=== PATIENT | female | born 1945 | race Caucasian/White ===

== ENCOUNTER → 2016-07-25 | Outpatient (CLI) | payer OTHER ==
[~2016-07-25] MED LIST: ADVIN25/60 INH; ALBUAER2 INH; ASPCH81X PO; ATR25 PO; AZEL0.056; CYAN100020 PO; FAMO20TA9 PO; FURO20TA PO; LOSA50TA6 PO; MECL1TAB40 PO; MONT1TAB3 PO; MULT-506 PO; PANT40TA PO; SIMV20TA2 PO; VNTHFA/IN INH
[2016-07-25 13:32] LABS: HEMATOCRIT 43.8 % (37-47); MEAN CELL VOLUME 88.3 fL (80-100); MEAN CORPUSCULAR HEMOGLOBIN 28.8 pg (25-34); MEAN CORPUSCULAR HGB CONC 32.6 g/dl (32-36); MEAN PLATELET VOLUME 11.8 fL (7.4-10.4); PLATELET COUNT 189 K/uL (130-400); RED BLOOD COUNT 4.96 M/uL (4.2-5.4); WHITE BLOOD COUNT 5.93 K/uL (4.8-10.8)
[2016-07-25 15:03] LABS: ALT/SGPT 46 U/L (12-78); AST/SGOT 31 U/L (15-37); BLOOD UREA NITROGEN 15 mg/dl (7-18); BUN/CREATININE RATIO 16.2 (10-20); CALCIUM 8.9 mg/dl (8.5-10.1); CARBON DIOXIDE 28 mmol/L (21-32); CHLORIDE 107 mmol/L (98-107); GLUCOSE 91 mg/dl (70-99); HDL CHOLESTEROL 55 mg/dl; SODIUM 141 mmol/L (136-145)
[2016-07-25 15:05] LABS: ALB/GLOB RATIO 1.2 (0.9-2); ALKALINE PHOSPHATASE 72 U/L (45-117); CHOLESTEROL 146 mg/dl (0-200); CHOLESTEROL/HDL RATIO 2.7; LDL CHOLESTEROL CALCULATED 74 mg/dl; TRIGLYCERIDES 85 mg/dl (0-150); VERY LOW DENSITY LIPOPROT CALC 17 mg/dl
== END | disposition home or self-care (01) ==
LOC: C.LABPBG 07:27
PROVIDERS: ATTEND Family Medicine
DX: K21.9 Gastro-esophageal reflux disease without esophagitis (principal); E78.5 Hyperlipidemia, unspecified; I10 Essential (primary) hypertension; J45.909 Unspecified asthma, uncomplicated; Z11.59 Encounter for screening for other viral diseases

== ENCOUNTER → 2017-02-06 | Outpatient (CLI) | payer OTHER ==
[~2017-02-06] MED LIST changes: -ALBUAER2 INH; -CYAN100020 PO; -FURO20TA PO
[2017-02-06 17:44] LABS: URINE APPEARANCE CLEAR (CLEAR); URINE BILIRUBIN NEG (NEG); URINE COLOR YELLOW; URINE NITRITE NEG (NEG); URINE SPECIFIC GRAVITY 1.013 (1.000-1.030); UROBILINOGEN NEG (NEG)
[2017-02-06 17:52] LABS: MANUAL MICROSCOPIC REQUIRED? NO; REVIEW REQ? NO
== END | disposition home or self-care (01) ==
LOC: C.LABSPEC 15:24
PROVIDERS: ATTEND Family Medicine
DX: R30.0 Dysuria (principal)

== ENCOUNTER → 2017-06-14 | Outpatient (CLI) | payer OTHER ==
[2017-06-14 14:46] LABS: ALBUMIN 3.6 gm/dl (3.4-5.0); ALT/SGPT 37 U/L (12-78); AST/SGOT 25 U/L (15-37); BLOOD UREA NITROGEN 17 mg/dl (7-18); CALCIUM 9.1 mg/dl (8.5-10.1); CARBON DIOXIDE 29 mmol/L (21-32); CREATININE 0.91 mg/dl (0.60-1.20); GLUCOSE 96 mg/dl (70-99); SODIUM 140 mmol/L (136-145)
[2017-06-14 14:48] LABS: ALKALINE PHOSPHATASE 75 U/L (45-117); CHOLESTEROL 189 mg/dl (0-200); LDL CHOLESTEROL CALCULATED 107 mg/dl; TOTAL PROTEIN 7.3 gm/dl (6.4-8.2)
== END | disposition home or self-care (01) ==
LOC: C.LABPBG 07:59
PROVIDERS: ATTEND Family Medicine
DX: E78.5 Hyperlipidemia, unspecified (principal); I10 Essential (primary) hypertension

== ENCOUNTER → 2017-10-24 | Outpatient (CLI) | payer OTHER ==
--- NOTE | 2017-10-25 14:55 | MAMMOGRAPHY REPORT ---
BILATERAL DIGITAL SCREENING MAMMOGRAM TOMOSYNTHESIS WITH CAD: 10/24/2017 CLINICAL HISTORY: Routine screening. Patient has no complaints. TECHNIQUE: The study was acquired using full field digital technology and interpreted from soft copy. Breast tomosynthesis in addition to standard 2D mammography was performed. Current study was also ev aluated with a Computer Aided Detection (CAD) system. COMPARISON: Comparison is made to exam dated: 06/14/2015 mammogram - [facility]. BREAST COMPOSITION: There are scattered areas of fibroglandular density in both breasts. FINDINGS: No suspicious masses, calcifications, or areas of architectural distortion are noted in either breast . There has been no significant interval change compared to prior exams. IMPRESSION: ACR BI-RADS CATEGORY 1: NEGATIVE There is no mammographic evidence of malignancy. A 1 year screening mammogram is recommended.( 019) The patient will receive written notification of the results. Some breast cancers are not detected with mammography. A negative mammographic report should not mark y biopsy if a clinically suggestive mass is present. Ledy Carrasco M.D. ah/:10/24/2017 14:53:18 Core Layer Machine Operator: Amanda Ames, [facility] letter sent: Normal 1/2 BI-RADS Code: ACR BI-RADS Category 1: Negative
== END | disposition home or self-care (01) ==
LOC: C.MAMM 13:22
PROVIDERS: ATTEND Family Medicine
DX: Z12.31 Encounter for screening mammogram for malignant neoplasm of breast (principal)

== ENCOUNTER 2023-07-19 15:32 | Inpatient (IN) ==
--- NOTE | 2023-07-19 16:01 | ED Triage Note ---
Date of Service July 19, 2023 Provider in Triage Author: Marleny Thurman History of Present Illness This patient was briefly evaluated while in triage. An abbreviated physical exam was performed. This patient is a 77-year-old Female who presents to the ED for evaluation of LLQ abdominal pain since Sunday. No fevers, nausea, or vomiting. Had outpatient CT scan that showed diverticulitis with possible diverticular abscess. Was sent to the ER for admission. Physical Exam GENERAL: Non-toxic and in no acute distress. HEENT: Pupils equal. No obvious scleral icterus. NEURO: Alert and oriented. No obvious neurological deficits on quick neuro exam. Initial orders for labs and / or imaging were placed and patient was placed in the waiting area until a bed is available. Please see further documentation for the full ED course. MDM / Impression Impression Impression: Diverticular disease of intestine with perforation and abscess
[2023-07-19] MEDS: PIPERACILLIN/TAZOBACTAM 4.5 GM/100 ML BAG IV ONE (16:17)
[2023-07-19] MEDS: SODIUM CHLORIDE 0.9% 500 ML IV ONE (16:18)
[2023-07-19 16:41] LABS: Basophils # (auto) 0.04 K/uL (0.00-0.20); Basophils % (auto) 0.4 %; Eosinophils # (auto) 0.23 K/uL (0.00-0.50); Eosinophils % (auto) 2.5 %; Hematocrit (blood only) 46.3 % (37.0-47.0); Hemoglobin 14.8 g/dl (12.0-16.0); Immature Granulocytes # (auto) 0.04 K/uL (0.01-0.20); Immature Granulocytes % (auto) 0.4 %; Lymphocytes # (auto) 2.25 K/uL (1.20-3.40); Lymphocytes % (auto) 24.4 %; Mean Corpuscular Hemoglobin 27.9 pg (25.0-34.0); Mean Corpuscular Volume 87.4 fL (80.0-100.0); Monocytes % (auto) 7.6 %; Neutrophils # (auto) 5.96 K/uL (1.40-6.50); Neutrophils % (auto) 64.7 %; Platelet Count 252 K/uL (130-400); RDW Coefficient of Variation 13.6 % (11.5-14.5); RDW Standard Deviation 43.5 fL (36.4-46.3); White Blood Count 9.22 K/ul (4.8-10.8)
--- NOTE | 2023-07-19 16:45 | XRay Report ---
XR chest 1V not portable CLINICAL HISTORY: Diverticulitis with ? Abscess/perf COMPARISON STUDY: Chest radiograph February 23, 2022. Chest CT November 18, 2021. FINDINGS: There is no pneumothorax or pleural effusion. Linear left basilar densities represent atele ctasis. No consolidation is identified. Pulmonary vascularity is normal. Cardiomediastinal silhouette is unremarkable. IMPRESSION: No acute cardiopulmonary findings. ACT 112: Negative or not required by law. Electronically signed by: Hossein Lancaster M.D. 07/19/2023 4:43 PM
[2023-07-19 16:56] LABS: Albumin Globulin Ratio 1.2 (0.9-2); Albumin Level 4.3 gm/dl (3.4-5.0); BUN Creatinine Ratio 17.5 (10-20); Bilirubin,Total 0.4 mg/dl (0.2-1.0); Calcium 9.9 mg/dl (8.6-10.3); Creatinine Clr Calc Pharmacy 56.2 ml/min; Est GFR (African American) 82.4 ml/min; Est GFR (Non-African American) 71.1 ml/min; Globulin 3.5 gm/dl (2.5-4.0); Potassium 3.8 mmol/L (3.5-5.1); Total Protein 7.8 gm/dl (6.0-8.3)
[2023-07-19] MEDS ORDERED: MoRPHine SULFATE 2 MG/ML CARP IV PRN (18:21)
[2023-07-19] MEDS ORDERED: ONDANSETRON INJ 2 MG/ML 2 ML VIAL IV PRN (18:23)
[2023-07-19] MEDS ORDERED: MAGNESIUM HYDROXIDE SUSP 30 ML UDC PO PRN (18:23)
[2023-07-19 18:54] LABS: Appearance Urine Clear (Clear); Bilirubin Urine Negative (Negative); Blood Urine Trace-intact (Negative); Color Urine Yellow; Glucose Urine UA Negative (Negative); Ketones Urine Negative (Negative); Leukocyte Esterase Urine Negative (Negative); Nitrite Urine Negative (Negative); Protein Urine Negative (Negative); Specific Gravity Urine 1.015 (1.000-1.030); Urobilinogen Urine Negative (Negative)
[2023-07-19 19:08] LABS: Epithelial Cell Urine 0-2 /hpf (0-2)
[2023-07-19 19:09] LABS: Bacteria Urine None Seen (None Seen); WBC Urine 0-5 /hpf (0-5)
--- NOTE | 2023-07-19 19:38 | Surgery Consultation ---
Date of Consultation July 19, 2023 Assessment & Plan (1) Diverticulitis: The patient is being admitted on the hospital service. From surgery perspective we recommend the following: Provide analgesics Provide antiemetics Would recommending keeping patient n.p.o. for the present time Provide IV fluid for hydration Broad-spectrum antibiotics to be utilized and the patient has received Zosyn thus far in the emergency department and this should continue Serial labs should be followed Serial abdominal exams to be followed At the present time the patient is noted be normotensive without tachycardia or fever. She also does not have leukocytosis or acute kidney injury. I feel the above conservative management is a reasonable approach at this time. I did discuss with the patient that would be preferable not to operate on her at this time as any surgical procedure at this time would necessitate a colostomy which she wishes to avoid If the patient fails to respond to the above measures consideration be given to repeat imaging to see if her noted abscess has increased in size. At the present time I feel that this abscess is too small for percutaneous drainage There is also concern in the past the patient may have had a colovesical fistula. Her current urinalysis does not support this diagnosis. If there does remain a concern for colovesical fistula consideration be given to performing a CT cystogram to better delineate the potential for this problem Additional recommendations be forthcoming based on her clinical course as unfolds History of Present Illness History of Present Illness This a 77-year-old female who presented to the emergency department at the recommendation of her primary care team secondary to diverticulitis. The patient notes that earlier this week she was having some lower abdominal pressure and patient felt as though she may have had a urinary tract infection. She said that she did see her primary care team where urinalysis was checked and she was told she did not have a urinary tract infection. Patient notes that she continues to have lower abdominal pressure so she was seen by her primary care team. The patient notes that she did have an episode of diverticulitis earlier this year in March that did not require any surgical intervention, but secondary to this past issue a CT scan of the abdomen pelvis was performed as an outpatient. It is also noteworthy to mention that there was concern during patient's episode of diverticulitis in March of this year that she may have had a colovesical fistula, however this was never definitively ascertained.. The CT scan of the patient's abdomen pelvis was performed earlier today and this demonstrated findings consistent with sigmoid diverticulitis. The patient had a 1.8 x 1.4 cm developing diverticular abscess. There is also some adjacent fluid and small amount of extraluminal gas between the sigmoid colon and the bladder suggestive of a contained diverticular perforation. There was bladder wall thickening with mucosal hyperemia but no gas or symptoms in the bladder. The patient presented to the emergency department where labs were performed as well as a chest x-ray. The chest x-ray showed no evidence of pneumonia. Labs included CBC her white blood cell count, hemoglobin, hematocrit, and platelet count were all normal. Chemistry profile showed sodium and potassium along with the BUN and creatinine were normal. There is no elevation of her procalcitonin or LFTs. Urinalysis was negative for infection. I did asked the patient about her symptomatology related to her current episode of diverticulitis and she merely reports some lower abdominal pressure greatest on the left lower quadrant. She denies any fevers, shakes, or chills. She denies any nausea or vomiting. Patient did note that she was having urinary frequency without dysuria or hematuria. She notes that she has never had abdominal surgery in the past she also notes that she does not take any anticoagulants. At the time of my interview the patient was resting comfortably in bed and she was in no distress Allergies Allergy/AdvReac Type Severity Reaction Status Date / Time adhesive Allergy Mild RASH Verified 07/19/23 11:10 No Known Drug Allergies Allergy Unknown . Verified 07/19/23 11:10 Home Medications Medication Instructions Recorded Confirmed Type cyanocobalamin (vitamin B-12) 1,000 mcg PO QAM 10/30/18 07/19/23 History 1,000 mcg tablet (Vitamin B-12) multivitamin 1 cap PO QAM 10/30/18 07/19/23 History flaxseed oil 1,000 mg capsule 1,000 mg PO QPM 01/16/20 07/19/23 History aspirin 81 mg tablet 81 mg PO QAM 03/17/22 07/19/23 History fexofenadine 180 mg tablet 180 mg PO HS 10/30/22 07/19/23 History (Giovanna Allergy) losartan 50 mg tablet 75 mg (1.5 x 50 mg) PO QAM #135 12/01/22 07/19/23 Rx tabs meclizine 12.5 mg tablet 12.5 mg PO BID PRN Vertigo #20 tabs 12/21/22 07/19/23 Rx furosemide 20 mg tablet 20 mg PO DAILY PRN leg swelling 01/23/23 07/19/23 Rx #30 tabs albuterol sulfate 90 mcg/actuation 2 puff inhalation Q6H PRN ASTHMA 02/05/23 07/19/23 Rx aerosol inhaler (Ventolin HFA) #18 grams famotidine 20 mg tablet See Rx Instructions .Route 02/05/23 07/19/23 Rx .COMPLEX #90 tabs fluticasone propionate 50 2 spray intranasal DAILY PRN Nasal 02/05/23 07/19/23 Rx mcg/actuation nasal Congestion #16 grams spray,suspension pantoprazole 40 mg tablet,delayed 40 mg PO DAILY GERD #90 tabs 02/09/23 07/19/23 Rx release hydroxyzine HCl 25 mg tablet 12.5 mg (1/2 x 25 mg) PO Q OTHER 02/27/23 07/19/23 Rx DAY itching #45 tabs montelukast 10 mg tablet 10 mg PO HS #90 tabs 03/05/23 07/19/23 Rx pregabalin 75 mg capsule 75 mg PO HS #90 caps 04/26/23 07/19/23 Rx fluticasone 250 mcg-salmeterol 50 1 inh inhalation BID PRN ASTHMA 05/03/23 07/19/23 Rx mcg/dose blistr powdr for #180 ea inhalation (Advair Diskus) simvastatin 40 mg tablet 40 mg PO HS #90 tabs 05/03/23 07/19/23 Rx triamcinolone acetonide 0.1 % 1 applic topical BID 2 weeks #30 07/19/23 07/19/23 Rx topical ointment grams Patient History Medical History Hx of diverticulitis of colon treated with oral abx in August 2022. History of COVID-19 09/2021- [facility],sinus congestion, no hospitalization, no current issues Prediabetes Hgb A1C 08/15/21 was 5.9 Peripheral neuropathy Allergic rhinitis Bulging lumbar disc hx of epidural steroid injection. follows with [facility]. Diverticulosis of colon Hyperlipidemia Acid reflux Vertigo Asthma Inhaler prn Hypertension Surgical History S/P epidural steroid injection S/P cystoscopy with uretral dilation and biopsy (benign) History of anesthesia reaction PROBLEMS WITH VERTIGO AFTER ANESTHESIA History of esophagogastroduodenoscopy (EGD) History of colonoscopy History of tooth extraction S/P trigger finger release History of sinus surgery History of appendectomy History of cholecystectomy History of hysterectomy vaginal Family History Father Stroke Asthma Hypotension Mother Diabetes Breast cancer Hypertension Stroke Brother Diabetes Hypertension Stroke Brother Pancreatic cancer Sister Diabetes Hypertension Family history of thyroid problem Other No family history of adverse response to anesthesia Denies family history of Ovarian cancer Colorectal cancer Social History Smoking Status: Never smoker Second Hand Exposure: No; Do You Dip or Chew Tobacco: No; Hx Alcohol Use: No Hx Substance Use: No Preferred Language: Polish Communication Ability: Effective Visual Impairment: No Limitations Hearing Ability: Normal Home Health Lpn Required: No Beliefs That Will Affect Care: None marital status: Current Living Situation: Spouse current occupational status: retired How many Children do You have: 3 Feels Safe at Home: Yes Childhood Exposure to Second-Hand Smoke: No Diet: regular Diet Comment: regular caffeine: Yes (coffee) during the past year weight has: remained stable Dental Care, Regularly: Yes Physical Activity Frequency: Daily Physical Activity Frequency Comment: housechores, pizza shop and beauty shop Seatbelt Use: always Sunscreen Use: Yes Assistive Devices: Glasses Review of Systems Constitutional: no fever and no chills Ear, Nose, Mouth, Throat: no hearing loss Respiratory: no cough and no dyspnea Cardiovascular: no chest pain Gastrointestinal: as per Subjective / HPI Genitourinary: as per Subjective / HPI Musculoskeletal: no back pain Integumentary: no rash Neurologic: no localized weakness Physical Exam Constitutional: WD/WN, vitals as above Eyes: no conjunctival abnormality ENMT: Ears: no hearing impairment and no external ear abnormality Mouth: no oropharynx abnormality Neck: trachea midline Respiratory: normal respiratory effort; no respiratory distress and no labored breathing Cardiovascular: Rate/Rhythm: regular rate and regular rhythm Gastrointestinal (Abdomen): Abdomen is soft and nonrigid. Patient did have only slight tenderness to palpation in the left lower quadrant. There is no rebound tenderness or guarding or signs of peritonitis Musculoskeletal: No calf tender Skin: no rashes Neurologic: moves all extremities Psychiatric: A+Ox3, euthymic affect Results & Data Vital Signs (Past 12 Hours) Vital Signs Temp Pulse Resp BP Pulse Ox O2 Del Method 07/19/23 15:54 36.9 C 84 18 152/71 H 94 Room Air PG Care Time/CCT Total # of Minutes Spent Total Time Spent with Patient: Total time spent is greater than 50% in coordination of care (as documented) at patient's floor/unit and/or counseling patient: Coding Level of Care Code 98392 INT INP/OBS CARE MIN Diagnoses Diverticulitis K57.92
--- NOTE | 2023-07-19 19:44 | History & Physical Report ---
Date of Service July 19, 2023 Assessment & Plan (1) Diverticulitis: (2) Hypertension: (3) Asthma: (4) Vertigo: (5) Hyperlipidemia: (6) Peripheral neuropathy: (7) Prediabetes: Plan 77-year-old female with history of diverticular disease presents with recurrent diverticulitis with possible abscess IV antibiotic IV fluids Clear liquid diet Surgical evaluation monitor CBC, pain control # UTI follow up urine culture IV antibiotics # HTN continue home meds # GERD continue home meds # Asthma stable , no exacerbation , continue home meds # hyperlipidemia continue home meds # peripheral neuropathy continue home meds # prediabets , monitor BG History of Present Illness Chief Complaint: left lower abdomen pain Primary Care Provider: Mari Nelson DO 77-year-old female with past medical history significant for recurrent diverticulitis, GERD, hypertension, asthma presents here with left lower abdominal pain, started Sunday, no fever or chills, no nausea no vomiting, has a loose stool, urinary frequency, outpatient CT abdomen and pelvis is significant for sigmoid colon diverticulitis with possible diverticular abscess, she was sent to the emergency room for evaluation and treatment . She had a colonoscopy last year, showed multiple diverticula, its her third episode of diverticulitis. Denies any weight loss, and overall has a good appetite, denies chest pain shortness of breath or any other symptoms. Patient mentions history of colovesical fistula, apparently she was evaluated by surgeon and was told she has no fistula. Allergies Allergy/AdvReac Type Severity Reaction Status Date / Time adhesive Allergy Mild RASH Verified 07/19/23 11:10 No Known Drug Allergies Allergy Unknown . Verified 07/19/23 11:10 Home Medications Medication Instructions Recorded Confirmed Type cyanocobalamin (vitamin B-12) 1,000 mcg PO QAM 10/30/18 07/19/23 History 1,000 mcg tablet (Vitamin B-12) multivitamin 1 cap PO QAM 10/30/18 07/19/23 History flaxseed oil 1,000 mg capsule 1,000 mg PO QPM 01/16/20 07/19/23 History aspirin 81 mg tablet 81 mg PO QAM 03/17/22 07/19/23 History fexofenadine 180 mg tablet 180 mg PO HS 10/30/22 07/19/23 History (Giovanna Allergy) losartan 50 mg tablet 75 mg (1.5 x 50 mg) PO QAM #135 12/01/22 07/19/23 Rx tabs meclizine 12.5 mg tablet 12.5 mg PO BID PRN Vertigo #20 tabs 12/21/22 07/19/23 Rx furosemide 20 mg tablet 20 mg PO DAILY PRN leg swelling 01/23/23 07/19/23 Rx #30 tabs albuterol sulfate 90 mcg/actuation 2 puff inhalation Q6H PRN ASTHMA 02/05/23 07/19/23 Rx aerosol inhaler (Ventolin HFA) #18 grams famotidine 20 mg tablet See Rx Instructions .Route 02/05/23 07/19/23 Rx .COMPLEX #90 tabs fluticasone propionate 50 2 spray intranasal DAILY PRN Nasal 02/05/23 07/19/23 Rx mcg/actuation nasal Congestion #16 grams spray,suspension pantoprazole 40 mg tablet,delayed 40 mg PO DAILY GERD #90 tabs 02/09/23 07/19/23 Rx release hydroxyzine HCl 25 mg tablet 12.5 mg (1/2 x 25 mg) PO Q OTHER 02/27/23 07/19/23 Rx DAY itching #45 tabs montelukast 10 mg tablet 10 mg PO HS #90 tabs 03/05/23 07/19/23 Rx pregabalin 75 mg capsule 75 mg PO HS #90 caps 04/26/23 07/19/23 Rx fluticasone 250 mcg-salmeterol 50 1 inh inhalation BID PRN ASTHMA 05/03/23 07/19/23 Rx mcg/dose blistr powdr for #180 ea inhalation (Advair Diskus) simvastatin 40 mg tablet 40 mg PO HS #90 tabs 05/03/23 07/19/23 Rx triamcinolone acetonide 0.1 % 1 applic topical BID 2 weeks #30 07/19/23 07/19/23 Rx topical ointment grams Past Med/Surg History Medical History Hx of diverticulitis of colon History of COVID-19 Prediabetes Peripheral neuropathy Allergic rhinitis Bulging lumbar disc Diverticulosis of colon Hyperlipidemia Acid reflux Vertigo Asthma Hypertension Surgical History S/P epidural steroid injection S/P cystoscopy History of anesthesia reaction History of esophagogastroduodenoscopy (EGD) History of colonoscopy History of tooth extraction S/P trigger finger release History of sinus surgery History of appendectomy History of cholecystectomy History of hysterectomy Family History Father Stroke Asthma Hypotension Mother Diabetes Breast cancer Hypertension Stroke Brother Diabetes Hypertension Stroke Brother Pancreatic cancer Sister Diabetes Hypertension Family history of thyroid problem Other No family history of adverse response to anesthesia Denies family history of Ovarian cancer Colorectal cancer Social History Smoking Status: Never smoker Second Hand Exposure: No; Do You Dip or Chew Tobacco: No; Hx Alcohol Use: Yes Alcohol type: wine Alcohol Intake Frequency: Monthly or Less Hx Substance Use: No Preferred Language: Irish Communication Ability: Effective Visual Impairment: No Limitations Hearing Ability: Normal Produce 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 Beliefs That Will Affect Care: None marital status: Current Living Situation: Spouse current occupational status: retired How many Children do You have: 3 Feels Safe at Home: Yes Childhood Exposure to Second-Hand Smoke: No Diet: regular Diet Comment: regular caffeine: Yes (coffee) during the past year weight has: remained stable Dental Care, Regularly: Yes Physical Activity Frequency: Daily Physical Activity Frequency Comment: housechores, pizza shop and beauty shop Seatbelt Use: always Sunscreen Use: Yes Assistive Devices: Glasses Review of Systems Review of Systems: All systems reviewed & are unremarkable except as noted in HPI & below Physical Exam Physical Exam: Head is atraumatic normocephalic neck supple no JVD no carotid bruit lungs clear to auscultation bilaterally heart S1-S2 regular no murmurs gallops or rubs abdomen left lower quadrant tenderness, soft , nondistended, bowel sounds present extremities no clubbing no cyanosis, pulses present neuro alert awake oriented x 3, no focal deficit Results & Data Results & Data Vital Signs (Past 12 Hours) Vital Signs Temp Pulse Resp BP Pulse Ox O2 Del Method 07/19/23 15:54 36.9 C 84 18 152/71 H 94 Room Air Laboratory Results Abnormal lab results 07/19/23 07/19/23 Range/Units 16:20 18:30 [place] # (Auto) 0.70 H (0.11-0.59) K/uL Glucose 161 H (70-99(Fasting)) mg/dl Urine Blood Trace-intact H (Negative) Urine RBC 3-5 H (0-2) /hpf Diagnostic Findings Chest X-Ray 07/19/23 16:01 XR chest 1V not portable CLINICAL HISTORY: Diverticulitis with ? Abscess/perf COMPARISON STUDY: Chest radiograph February 23, 2022. Chest CT November 18, 2021. FINDINGS: There is no pneumothorax or pleural effusion. Linear left basilar densities represent atelectasis. No consolidation is identified. Pulmonary vascularity is normal. Cardiomediastinal silhouette is unremarkable. IMPRESSION: No acute cardiopulmonary findings. ACT 112: Negative or not required by law. Electronically signed by: Hossein Lancaster M.D. 07/19/2023 4:43 PM Code Status & VTE Plan Code Status full VTE Prophylaxis Plan VTE Prophylaxis will be ordered: Yes PG Care Time/CCT Total # of Minutes Spent Total Time Spent with Patient: Total time spent is greater than 50% in coordination of care (as documented) at patient's floor/unit and/or counseling patient: Coding Level of Care Code 34506 INT INP/OBS CARE MIN Diagnoses Diverticulitis K57.92 Hypertension I10 Asthma J45.909 Vertigo R42 Hyperlipidemia E78.5 Peripheral neuropathy G62.9 Prediabetes R73.03
[2023-07-19] MEDS: LACTATED RINGER'S 1,000 ML IV SCH (20:33)
--- NOTE | 2023-07-19 21:02 | Emergency Department Note ---
History of Present Illness General Chief Complaint: Abnormal Labs/Diagnostic Testing Stated Complaint: DOC REF,CT SCAN ABNORMAL, Time Seen by Provider: 07/19/23 16:37 History of Present Illness Provider Complaint: + abnormal lab Description of abnormal result: Abnormal CT Associated symptoms: + abdominal pain; no fever, no chills, no chest pain, no shortness of breath or no rash Home Medications Medication Instructions Recorded Confirmed Type cyanocobalamin (vitamin B-12) 1,000 mcg PO QAM 10/30/18 07/19/23 History 1,000 mcg tablet (Vitamin B-12) multivitamin 1 cap PO QAM 10/30/18 07/19/23 History flaxseed oil 1,000 mg capsule 1,000 mg PO QPM 01/16/20 07/19/23 History aspirin 81 mg tablet 81 mg PO QAM 03/17/22 07/19/23 History fexofenadine 180 mg tablet 180 mg PO HS 10/30/22 07/19/23 History ([facility] Allergy) losartan 50 mg tablet 75 mg (1.5 x 50 mg) PO QAM #135 12/01/22 07/19/23 Rx tabs meclizine 12.5 mg tablet 12.5 mg PO BID PRN Vertigo #20 tabs 12/21/22 07/19/23 Rx furosemide 20 mg tablet 20 mg PO DAILY PRN leg swelling 01/23/23 07/19/23 Rx #30 tabs albuterol sulfate 90 mcg/actuation 2 puff inhalation Q6H PRN ASTHMA 02/05/23 07/19/23 Rx aerosol inhaler (Ventolin HFA) #18 grams famotidine 20 mg tablet See Rx Instructions .Route 02/05/23 07/19/23 Rx .COMPLEX #90 tabs fluticasone propionate 50 2 spray intranasal DAILY PRN Nasal 02/05/23 07/19/23 Rx mcg/actuation nasal Congestion #16 grams spray,suspension pantoprazole 40 mg tablet,delayed 40 mg PO DAILY GERD #90 tabs 02/09/23 07/19/23 Rx release hydroxyzine HCl 25 mg tablet 12.5 mg (1/2 x 25 mg) PO Q OTHER 02/27/23 07/19/23 Rx DAY itching #45 tabs montelukast 10 mg tablet 10 mg PO HS #90 tabs 03/05/23 07/19/23 Rx pregabalin 75 mg capsule 75 mg PO HS #90 caps 04/26/23 07/19/23 Rx fluticasone 250 mcg-salmeterol 50 1 inh inhalation BID PRN ASTHMA 05/03/23 07/19/23 Rx mcg/dose blistr powdr for #180 ea inhalation (Advair Diskus) simvastatin 40 mg tablet 40 mg PO HS #90 tabs 05/03/23 07/19/23 Rx triamcinolone acetonide 0.1 % 1 applic topical BID 2 weeks #30 07/19/23 07/19/23 Rx topical ointment grams Allergies Allergy/AdvReac Type Severity Reaction Status Date / Time adhesive Allergy Mild RASH Verified 07/19/23 11:10 No Known Drug Allergies Allergy Unknown . Verified 07/19/23 11:10 Past Med/Surg History Medical History Hx of diverticulitis of colon treated with oral abx in August 2022. History of COVID-19 09/2021- [facility]OR[facility],sinus congestion, no hospitalization, no current issues Prediabetes Hgb A1C 08/15/21 was 5.9 Peripheral neuropathy Allergic rhinitis Bulging lumbar disc hx of epidural steroid injection. follows with VINAY Alonso. Diverticulosis of colon Hyperlipidemia Acid reflux Vertigo Asthma Inhaler prn Hypertension Surgical History S/P epidural steroid injection S/P cystoscopy with uretral dilation and biopsy (benign) History of anesthesia reaction PROBLEMS WITH VERTIGO AFTER ANESTHESIA History of esophagogastroduodenoscopy (EGD) History of colonoscopy History of tooth extraction S/P trigger finger release History of sinus surgery History of appendectomy History of cholecystectomy History of hysterectomy vaginal Family History Father Stroke Asthma Hypotension Mother Diabetes Breast cancer Hypertension Stroke Brother Diabetes Hypertension Stroke Brother Pancreatic cancer Sister Diabetes Hypertension Family history of thyroid problem Other No family history of adverse response to anesthesia Denies family history of Ovarian cancer Colorectal cancer Social History Smoking Status: Never smoker Second Hand Exposure: No; Do You Dip or Chew Tobacco: No; Hx Alcohol Use: No Hx Substance Use: No Preferred Language: Amharic Communication Ability: Effective Visual Impairment: No Limitations Hearing Ability: Normal Assembly Associate Required: No Beliefs That Will Affect Care: None marital status: Current Living Situation: Spouse current occupational status: retired How many Children do You have: 3 Feels Safe at Home: Yes Childhood Exposure to Second-Hand Smoke: No Diet: regular Diet Comment: regular caffeine: Yes (coffee) during the past year weight has: remained stable Dental Care, Regularly: Yes Physical Activity Frequency: Daily Physical Activity Frequency Comment: 5o9, [employer] Seatbelt Use: always Sunscreen Use: Yes Assistive Devices: Glasses Physical Exam 2 Vital Signs: Vital Signs - 24 hr 07/19/23 15:54 Temperature 36.9 C Temperature Source Temporal Artery Sc an Pulse Rate 84 Respiratory Rate 18 Respiratory Effort / Characteristics Non-Labored Sponta neous Respiratory Depth Normal Blood Pressure 152/71 H Blood Pressure Kaylee n 98 Blood Pressure Pos ition Sitting Pulse Oximetry 94 Oxygen Delivery Me thod Room Air Sepsis Recent Feve r Within 48 Hours No Sepsis New/Unexpla ined Change in Men mona Status N/A Sepsis Action Take n by Nursing No Action Required Physical Exam: Physical Exam GENERAL: She is oriented to person, place, and time. She appears well-developed and well-nourished. She does not appear distressed. HENT: Exam performed. -Head: Normocephalic and atraumatic. -Right Ear: External ear normal. No mastoid erythema -Left Ear: External ear normal. No mastoid erythema -Mouth/Throat: The oropharynx is clear and moist. No trismus in the jaw. No dental abscesses or uvula swelling. No oropharyngeal exudate or tonsillar abscesses. EYES: Conjunctivae and EOM are normal.Right eye exhibits no discharge. Left eye exhibits no discharge. No scleral icterus. NECK: Normal range of motion. Neck supple. No JVD present. No tracheal deviation and normal range of motion present. CV: Normal rate, regular rhythm, normal heart sounds and intact distal pulses. There is no peripheral edema. Palpable radial pulses bue. PULM/CHEST: Effort normal and breath sounds normal. No respiratory distress. No stridor. She has no wheezes. She has no rales. -Chest Wall: She exhibits no tenderness. ABD: The abdomen is soft. Bowel sounds are normal. She has no distension. No mass is present. There is tenderness to palpation of the left lower quadrant. There is no rebound, no guarding, no Hickey's sign and no tenderness at McBurney's point. Rovsig negative MUSC/SKEL: Normal range of motion. There is no peripheral edema, tenderness or deformity. NEURO: Motor and sensation grossly intact. SKIN: Skin is warm and dry. She is not diaphoretic. PSYCH: She has a normal mood and affect. Behavior is normal. Judgment and thought content normal. Course Course 1637: The patient was evaluated in room C12. A complete history and physical exam was performed Administered Medications Heparin Sodium (Porcine) (Heparin Sod 5,000 Unit/0.5 Ml Vial) 5,000 units SQ Q8 JJ Stop: 08/18/23 21:59 Last Admin: 07/19/23 22:34 Dose: 5,000 units Documented By: GENI Lactated Ringer's (Lr) 1,000 mls @ 80 mls/hr IV .[id number] JJ Stop: 08/18/23 18:29 Last Admin: 07/19/23 20:33 Dose: 80 mls/hr Documented By: DEVIN Piperacillin Sod/Tazobactam (Sod 4.5 gm/ Dextrose) 100 mls @ 25 mls/hr IV Q8H JJ; Protocol Stop: 07/29/23 21:59 Last Admin: 07/19/23 22:34 Dose: 25 mls/hr Documented By: GENI Montelukast Sodium (Montelukast Sodium 10 Mg Tablet) 10 mg PO HS JJ Stop: 08/18/23 21:40 Last Admin: 07/19/23 22:35 Dose: 10 mg Documented By: GENI Pregabalin (Pregabalin 75 Mg Cap) 75 mg PO HS JJ Stop: 08/18/23 21:40 Last Admin: 07/19/23 22:33 Dose: 75 mg Documented By: GENI Simvastatin (Simvastatin 40 Mg Tab) 40 mg PO HS JJ Stop: 08/18/23 21:40 Last Admin: 07/19/23 22:35 Dose: 40 mg Documented By: GENI Triamcinolone Acetonide (Triamcinolone Acet 0.1% Oint 15 Gm Tube) 1 appln TOP BID JJ Stop: 08/18/23 21:40 Last Admin: 07/19/23 22:35 Dose: 1 appln Documented By: LBN Discontinued Medications Piperacillin Sod/Tazobactam Sod (Zosyn) 4.5 gm in 100 mls @ 200 mls/hr IV NOW ONE Stop: 07/19/23 16:30 Last Infusion: 07/19/23 17:43 Dose: Infused Documented By: Admin: 07/19/23 16:17 Dose: 200 mls/hr Documented By: ROSARIO Sodium Chloride (Nss) 500 mls @ 999 mls/hr IV .Q31M ONE Stop: 07/19/23 16:31 Last Infusion: 07/19/23 17:43 Dose: Infused Documented By: Admin: 07/19/23 16:18 Dose: 999 mls/hr Documented By: ROSARIO Medical Decision Making Medical Records Attestation: I reviewed the patient's medical records. External medical records reviewed. Patient had an outpatient CT scan which showed the following: IMPRESSION: 1. Findings consistent with sigmoid diverticulitis. Increase in inflammation compared to CT of March 29, 2023. Interval development of a small 1.8 x 1.4 cm rim-enhancing fluid collection suggestive of a developing diverticular abscess. No drainable fluid collection. Adjacent fluid and small amount of extraluminal gas between the sigmoid colon and bladder suggests a tiny contained perforation in the setting of diverticulitis. 2. Bladder wall thickening with mucosal hyperemia, increased since prior exam. No gas within the bladder. The findings could be correlated with urinalysis to exclude an occult colovesicular fistula. Possible involvement of the left adnexa given asymmetric thickening, as described above. 3. No bowel obstruction. Laboratory Data Attestation: I reviewed the patient's lab results. 07/19/23 16:20 07/19/23 16:20 Lab Results 07/19/23 Range/Units 16:20 WBC 9.22 (4.8-10.8) K/ul RBC 5.30 (4.20-5.40) M/uL Hgb 14.8 (12.0-16.0) g/dl Hct 46.3 (37.0-47.0) % MCV 87.4 (80.0-100.0) fL MCH 27.9 (25.0-34.0) pg MCHC 32.0 (32.0-36.0) g/dL RDW Std Deviation 43.5 (36.4-46.3) fL RDW Coeff of Miquel 13.6 (11.5-14.5) % Plt Count 252 (130-400) K/uL MPV 11.0 (9.4-12.4) fL Immature Gran % (Auto) 0.4 % Neut % (Auto) 64.7 % Lymph % (Auto) 24.4 % Terry % (Auto) 7.6 % Eos % (Auto) 2.5 % Baso % (Auto) 0.4 % Neut # (Auto) 5.96 (1.40-6.50) K/uL Lymph # (Auto) 2.25 (1.20-3.40) K/uL Terry # (Auto) 0.70 H (0.11-0.59) K/uL Eos # (Auto) 0.23 (0.00-0.50) K/uL Baso # (Auto) 0.04 (0.00-0.20) K/uL Immature Gran # (Auto) 0.04 (0.01-0.20) K/uL Sodium 139 (136-145) mmol/L Potassium 3.8 (3.5-5.1) mmol/L Chloride 104 (98-107) mmol/L Carbon Dioxide 29 (21-32) mmol/L Anion Gap 6 (3-11) BUN 14 (6-23) mg/dl Creatinine 0.80 (0.6-1.2) mg/dl Est Cr Clr Drug Dosing 56.2 ml/min Est GFR ( Amer) 82.4 ml/min Est GFR (Non-Af Amer) 71.1 ml/min BUN/Creatinine Ratio 17.5 (10-20) Glucose 161 H (70-99(Fasting)) mg/dl Lactate 1.6 (0.4-2.0) mmol/L Calcium 9.9 (8.6-10.3) mg/dl Total Bilirubin 0.4 (0.2-1.0) mg/dl AST 17 (13-39) U/L ALT 17 (7-52) U/L Alkaline Phosphatase 86 (34-104) U/L Total Protein 7.8 (6.0-8.3) gm/dl Albumin 4.3 (3.4-5.0) gm/dl Globulin 3.5 (2.5-4.0) gm/dl Albumin/Globulin Ratio 1.2 (0.9-2) Procalcitonin 0.02 (0-0.5) ng/ml MDM Narrative Cardiac monitoring: An order was placed for continuous cardiac monitoring. The monitor shows a rate of 80 with sinus rhythm interpreted by me Patient was seen during a time of extreme volume and extreme acuity. Nursing triage protocols were initiated labs and imaging was conducted by protocol in the triage area. Labs within normal limits. Outpatient CT showed diverticular abscess with possible microperforation. Abscess is very small and not amenable to drainage. Discussed with on-call general surgery Dr. Snyder and he agrees that the patient should be treated with IV antibiotics and admitted to the medicine team. He agrees to be on consult. Patient be admitted to the [facility] team. Impression & Plan Diverticular disease of intestine with perforation and abscess Discharge Plan Visit Data Chief Complaint: Abnormal Labs/Diagnostic Testing Stated Complaint: DOC REF,CT SCAN ABNORMAL, ED Provider: Terrence Hillman Discharge Problem: Diverticular disease of intestine with perforation and abscess Patient Disposition: Admitted As Inpatient Discharge Instructions Interventions: ED Discharge Assessment Last Done: 07/19/23 21:05
[2023-07-19] MEDS ORDERED: ALBUTEROL HFA 8 GM INHALER INH PRN (21:41)
[2023-07-19] MEDS ORDERED: MECLIZINE 12.5 MG TAB PO PRN (21:41)
[2023-07-19] MEDS ORDERED: FLUTICASONE PROPIONATE NA SPR 16 GM BTL PRN (21:41)
[2023-07-19] MEDS: PREGABALIN 75 MG CAP PO SCH (22:33)
[2023-07-19] MEDS: HEPARIN SOD 5,000 UNIT/0.5 ML VIAL SQ SCH (22:34)
[2023-07-19] MEDS: PIPERACILLIN/TAZOBACTAM 4.5 GM in DEXTROSE 5% MINI-B 100 ML IV SCH (22:34)
[2023-07-19] MEDS: SIMVASTATIN 40 MG TAB PO SCH (22:35)
[2023-07-19] MEDS: MONTELUKAST SODIUM 10 MG TABLET PO SCH (22:35)
[2023-07-19] MEDS: TRIAMCINOLONE ACET 0.1% OINT 15 GM TUBE TOP SCH (22:35)
[2023-07-20 08:24] LABS: Basophils # (auto) 0.04 K/uL (0.00-0.20); Basophils % (auto) 0.6 %; Eosinophils # (auto) 0.41 K/uL (0.00-0.50); Eosinophils % (auto) 6.4 %; Hematocrit (blood only) 42.8 % (37.0-47.0); Hemoglobin 13.9 g/dl (12.0-16.0); Immature Granulocytes # (auto) 0.02 K/uL (0.01-0.20); Immature Granulocytes % (auto) 0.3 %; Lymphocytes # (auto) 2.28 K/uL (1.20-3.40); Lymphocytes % (auto) 35.5 %; Mean Corpuscular Hemoglobin 27.9 pg (25.0-34.0); Mean Corpuscular Hgb Conc 32.5 g/dL (32.0-36.0); Mean Corpuscular Volume 85.9 fL (80.0-100.0); Mean Platelet Volume 11.2 fL (9.4-12.4); Monocytes # (auto) 0.53 K/uL (0.11-0.59); Monocytes % (auto) 8.2 %; Neutrophils # (auto) 3.15 K/uL (1.40-6.50); Platelet Count 232 K/uL (130-400); RDW Coefficient of Variation 13.7 % (11.5-14.5); RDW Standard Deviation 42.3 fL (36.4-46.3); Red Blood Count 4.98 M/uL (4.20-5.40); White Blood Count 6.43 K/ul (4.8-10.8)
--- NOTE | 2023-07-20 08:51 | Surgery Progress Note ---
Date of Service July 20, 2023 Assessment & Plan (1) Diverticular disease of intestine with perforation and abscess: Plan: patient referred to hospital after outpt CT scan noted diverticulitis w/ abscess abscess too small for drainage and likely will improve with bowel rest and IV abx wbc 6. vitals stable and pt afebrile she overall feels well, some lower abdominal pressure, but no worsening pain/symptoms will allow clear liquid diet for today had colonoscopy late last year No plans for surgical intervention, continue IV abx while in house and dispo on course of PO's [facility] covering the wknd as above. pt looks great. still with suprapubic/LLQ "pressure". certainly no indications for surgical intervention at this time. will follow along. Admission and Anticipated Discharge Date Admission Date: July 19, 2023 Subjective Patient reports feeling some pressure in her lower abdomen, almost like she needs to have a bowel movement. Otherwise denies much in the way of pain. No nausea. Had episode of diverticulitis last year and says this feels better than that episode. Physical Exam Physical Exam: awake/alert, no distress, sitting in chair Respiratory: normal respiratory effort Gastrointestinal (Abdomen): Percussion/Palpation: + abdomen tender (mild discomfort in LLQ) and abdomen soft Results & Data Vital Signs (Past 12 Hours) Vital Signs Temp Pulse Resp BP Pulse Ox O2 Del Method 07/20/23 07:16 98.2 F 66 12 128/64 93 Room Air 07/19/23 21:44 97.7 F 69 18 158/74 H 96 Room Air PG Care Time/CCT Total # of Minutes Spent Total Time Spent with Patient: Total time spent is greater than 50% in coordination of care (as documented) at patient's floor/unit and/or counseling patient: Coding Level of Care Code 88312 SUB INP/OBS CARE 04/19MIN Diagnoses Diverticular disease of intestine with perforation and abscess K57.80
[2023-07-20 08:53] LABS: Albumin Level 3.8 gm/dl (3.4-5.0); Bilirubin,Total 0.6 mg/dl (0.2-1.0); Calcium 8.9 mg/dl (8.6-10.3); Potassium 4.3 mmol/L (3.5-5.1)
[2023-07-20 08:59] LABS: Albumin Globulin Ratio 1.2 (0.9-2); BUN Creatinine Ratio 15.6 (10-20); Creatinine Clr Calc Pharmacy 58.1 ml/min; Est GFR (African American) 86.3 ml/min; Est GFR (Non-African American) 74.5 ml/min; Globulin 3.1 gm/dl (2.5-4.0); Total Protein 6.9 gm/dl (6.0-8.3)
[2023-07-20] MEDS: ASPIRIN 81 MG ECTAB PO SCH (09:17)
[2023-07-20] MEDS: CYANOCOBALAMIN (B-12) 500 MCG TABLET PO SCH (09:17)
[2023-07-20] MEDS: FAMOTIDINE 20 MG TAB PO SCH (09:17)
[2023-07-20] MEDS: FLUTICASONE/VILANTEROL 200/25MCG 14 PUFFS/INHALER INH SCH (09:18)
[2023-07-20] MEDS: LOSARTAN POTASSIUM 25 MG TAB PO SCH (09:18)
[2023-07-20] MEDS: PANTOprazole 40 MG TAB PO SCH (09:19)
[2023-07-20] MEDS: POLYETHYLENE (MIRALAX) 17 GM PACK PO SCH (10:46)
--- NOTE | 2023-07-20 12:37 | Hospitalist Progress Note ---
Date of Service July 20, 2023 Assessment & Plan (1) Diverticulitis: Plan: Patient presents to the hospital on account of worsening abdominal pain. CT abdomen and pelvis done showed findings consistent with sigmoid diverticulitis, and increasing inflammation compared to CT done in March 2023. There is also an interval development of a small 1.8 x 1.4 cm rim-enhancing fluid collection suggestive of a developing abscess. No drainable fluid collection. Plan is conservative management per surgery Continue antibiotics. Currently on IV Zosyn Currently on clear liquid diet Continue IV normal saline 100 cc/h (2) Hypertension: Plan: Blood pressure is well-controlled Continue home medications. (3) Asthma: Plan: Stable No wheeze on exam. Continue albuterol as needed (4) Vertigo: (5) Hyperlipidemia: (6) Peripheral neuropathy: (7) Prediabetes: Plan Continue to monitor in the hospital, discharge pending clinical improvement Admission and Anticipated Discharge Date Admission Date: July 19, 2023 Subjective Patient seen and examined, still elevated pressure in the abdomen, has not had a bowel movement, asked for CHIC.[id number] Review of Systems Review of Systems: All systems reviewed are negative, apart from the ones contained in the history. Physical Exam Physical Exam: The patient is awake, alert and oriented 3, well developed and well nourished, normocephalic and atraumatic, lying in bed and in no acute distress. HEENT--PERRL, EOMI, mucous membranes and oropharynx mildly dry Neck--supple. No JVD. No bruits. Thyroid normal, trachea midline, no adeno ruben. Heart--normal S1 and S2. No murmurs, rubs or gallops. Lungs--clear bilaterally, no respiratory distress, no accessory muscle use. Abdomen--normal bowel sounds and soft. Extremities--no cyanosis or clubbing. No edema. Dermatologic--normal skin turgor, normal color, no abnormal lymph nodes, no rash. Neurologic--cranial nerves II through XII grossly intact. Rheumatologic--normal range of motion. Psychiatric--normal affect. Results & Data Results & Data Vital Signs (Past 12 Hours) Vital Signs Temp Pulse Resp BP Pulse Ox O2 Del Method 07/20/23 07:16 98.2 F 66 12 128/64 93 Room Air PG Care Time/CCT Total # of Minutes Spent Total Time Spent with Patient: Total time spent is greater than 50% in coordination of care (as documented) at patient's floor/unit and/or counseling patient: Coding Level of Care Code 54513 SUB INP/OBS CARE MIN Diagnoses Diverticulitis K57.92 Hypertension I10 Asthma J45.909 Vertigo R42 Hyperlipidemia E78.5 Peripheral neuropathy G62.9 Prediabetes R73.03 Time Spent (min) 35
[2023-07-21] MEDS: hydrOXYzine HCl 25 MG TAB PO SCH (08:43)
--- NOTE | 2023-07-21 10:00 | Surgery Progress Note ---
Date of Service July 21, 2023 Assessment & Plan (1) Diverticulitis: Plan: The patient is being admitted on the hospital service. From surgery perspective we recommend the following: Provide analgesics Provide antiemetics May advance diet to low fiber - continue IV antibiotics at this time - possible discharge to home tomorrow if continuing to improve Admission and Anticipated Discharge Date Admission Date: July 19, 2023 Subjective Doing well. Tolerating clears. Minimal pain. No fevers or chills. No nausea or vomiting. Physical Exam Physical Exam: AFVSS NAD, A&O x 3 Abdomen: Soft, ND Mild TTP in left lower quadrant Results & Data Vital Signs (Past 12 Hours) Vital Signs Temp Pulse Resp BP Pulse Ox O2 Del Method 07/21/23 08:09 37.0 C 67 18 128/78 93 Room Air
--- NOTE | 2023-07-21 10:26 | Hospitalist Progress Note ---
Date of Service July 21, 2023 Assessment & Plan (1) Diverticulitis: Plan: Patient presents to the hospital on account of worsening abdominal pain. CT abdomen and pelvis done showed findings consistent with sigmoid diverticulitis, and increasing inflammation compared to CT done in March 2023. There is also an interval development of a small 1.8 x 1.4 cm rim-enhancing fluid collection suggestive of a developing abscess. No drainable fluid collection. Plan is conservative management per surgery Continue antibiotics. Currently on IV Zosyn Currently on clear liquid diet, advance as tolerated Continue IV normal saline 100 cc/h (2) Hypertension: Plan: Blood pressure is well-controlled Continue home medications. (3) Asthma: Plan: Stable No wheeze on exam. Continue albuterol as needed (4) Vertigo: (5) Hyperlipidemia: (6) Peripheral neuropathy: (7) Prediabetes: Plan Continue to monitor in the hospital, discharge pending clinical improvement Admission and Anticipated Discharge Date Admission Date: July 19, 2023 Subjective Patient seen and examined, tolerating clear liquid diet, wants to advance to full liquid diet or even regular diet. Review of Systems Review of Systems: All systems reviewed are negative, apart from the ones contained in the history. Physical Exam Physical Exam: The patient is awake, alert and oriented 3, well developed and well nourished, normocephalic and atraumatic, lying in bed and in no acute distress. HEENT--PERRL, EOMI, mucous membranes and oropharynx mildly dry Neck--supple. No JVD. No bruits. Thyroid normal, trachea midline, no adenopathy. Heart--normal S1 and S2. No murmurs, rubs or gallops. Lungs--clear bilaterally, no respiratory distress, no accessory muscle use. Abdomen--normal bowel sounds and soft. Extremities--no cyanosis or clubbing. No edema. Dermatologic--normal skin turgor, normal color, no abnormal lymph nodes, no rash. Neurologic--cranial nerves II through XII grossly intact. Rheumatologic--normal range of motion. Psychiatric--normal affect. Results & Data Results & Data Vital Signs (Past 12 Hours) Vital Signs Temp Pulse Resp BP Pulse Ox O2 Del Method 07/21/23 08:09 98.6 F 67 18 128/78 93 Room Air PG Care Time/CCT Total # of Minutes Spent Total Time Spent with Patient: Total time spent is greater than 50% in coordination of care (as documented) at patient's floor/unit and/or counseling patient: Coding Level of Care Code 51381 SUB INP/OBS CARE MIN Diagnoses Diverticulitis K57.92 Hypertension I10 Asthma J45.909 Vertigo R42 Hyperlipidemia E78.5 Peripheral neuropathy G62.9 Prediabetes R73.03 Time Spent (min) 35
--- NOTE | 2023-07-22 09:06 | Surgery Progress Note ---
Date of Service July 22, 2023 Assessment & Plan (1) Diverticulitis: Plan: The patient is being admitted on the hospital service. From surgery perspective we recommend the following: Provide analgesics Provide antiemetics May advance diet to low fiber - continue IV antibiotics at this time - possible discharge to home tomorrow if continuing to improve Admission and Anticipated Discharge Date Admission Date: July 19, 2023 Subjective some bloating today, minimal pain; concerned about eating Physical Exam Physical Exam: AFVSS NAD, A&O x 3 Abdomen: Soft, ND Mild TTP in left lower quadrant Results & Data Vital Signs (Past 12 Hours) Vital Signs Temp Pulse Resp BP Pulse Ox O2 Del Method 07/22/23 07:05 36.6 C 71 16 187/82 H 92 Room Air
--- NOTE | 2023-07-22 09:53 | Hospitalist Progress Note ---
Date of Service July 22, 2023 Assessment & Plan (1) Diverticulitis: Plan: Patient presents to the hospital on account of worsening abdominal pain. CT abdomen and pelvis done showed findings consistent with sigmoid diverticulitis, and increasing inflammation compared to CT done in March 2023. There is also an interval development of a small 1.8 x 1.4 cm rim-enhancing fluid collection suggestive of a developing abscess. No drainable fluid collection. Plan is conservative management per surgery Continue antibiotics. Currently on IV Zosyn, upon discharge will transition to p.o. antibiotic Currently on low fiber diet Continue IV fluids 100 cc/h (2) Hypertension: Plan: Blood pressure is well-controlled Continue home medications. (3) Asthma: Plan: Stable No wheeze on exam. Continue albuterol as needed (4) Vertigo: (5) Hyperlipidemia: (6) Peripheral neuropathy: (7) Prediabetes: Plan Hopefully discharge tomorrow when she tolerated general diet. Admission and Anticipated Discharge Date Admission Date: July 19, 2023 Subjective Patient seen and examined today, eating some oatmeal Review of Systems Review of Systems: All systems reviewed are negative, apart from the ones contained in the history. Physical Exam Physical Exam: The patient is awake, alert and oriented 3, well developed and well nourished, normocephalic and atraumatic, lying in bed and in no acute distress. HEENT--PERRL, EOMI, mucous membranes and oropharynx mildly dry Neck--supple. No JVD. No bruits. Thyroid normal, trachea midline, no adenopathy. Heart--normal S1 and S2. No murmurs, rubs or gallops. Lungs--clear bilaterally, no respiratory distress, no accessory muscle use. Abdomen--normal bowel sounds and soft. Extremities--no cyanosis or clubbing. No edema. Dermatologic--normal skin turgor, normal color, no abnormal lymph nodes, no rash. Neurologic--cranial nerves II through XII grossly intact. Rheumatologic--normal range of motion. Psychiatric--normal affect. Results & Data Results & Data Vital Signs (Past 12 Hours) Vital Signs Temp Pulse Resp BP Pulse Ox O2 Del Method 07/22/23 07:05 97.9 F 71 16 187/82 H 92 Room Air PG Care Time/CCT Total # of Minutes Spent Total Time Spent with Patient: Total time spent is greater than 50% in coordination of care (as documented) at patient's floor/unit and/or counseling patient: Coding Level of Care Code 47880 SUB INP/OBS CARE 235MIN Diagnoses Diverticulitis K57.92 Hypertension I10 Asthma J45.909 Vertigo R42 Hyperlipidemia E78.5 Peripheral neuropathy G62.9 Prediabetes R73.03 Time Spent (min) 35
[2023-07-22] MEDS ORDERED: Nursing to Pharmacy Communication SCH (21:30)
[2023-07-23] MEDS: ACETAMINOPHEN 325 MG TAB PO PRN (03:23)
--- NOTE | 2023-07-23 08:23 | Surgery Progress Note ---
Date of Service July 23, 2023 Assessment & Plan (1) Diverticular disease of intestine with perforation and abscess: Plan: clinically doing well no indication for surgery. will sign off. please call if any questions. will d/c miralax secondary to loose bm's Admission and Anticipated Discharge Date Admission Date: July 19, 2023 Subjective pt seen. feeling well. pain improved from admission. Physical Exam Constitutional: WD/WN, vitals as above no acute distress and not ill appearing Eyes: PERRL, conjunctivae normal, anicteric sclerae EOM intact bilaterally ENMT: external ear and nose normal, oropharynx normal Ears: no hearing impairment Neck: trachea midline, no thyromegaly Respiratory: normal respiratory effort; no respiratory distress and does not use accessory muscles Cardiovascular: Rate/Rhythm: regular rate and regular rhythm Gastrointestinal (Abdomen): soft. nt. nd. +bs's Skin: no rashes, warm and dry Psychiatric: Orientation: alert, oriented x 3 and cooperative Results & Data Vital Signs (Past 12 Hours) Vital Signs Temp Pulse Resp BP Pulse Ox O2 Del Method 07/23/23 07:00 36.7 C 65 18 154/82 H 95 Room Air 07/22/23 22:24 36.6 C 69 18 160/90 H 93 Room Air PG Care Time/CCT Total # of Minutes Spent Total Time Spent with Patient: Total time spent is greater than 50% in coordination of care (as documented) at patient's floor/unit and/or counseling patient: Coding Level of Care Code 98388 SUB INP/OBS CARE 04/19MIN Diagnoses Diverticular disease of intestine with perforation and abscess K57.80
[2023-07-23 09:02] LABS: BUN Creatinine Ratio 14.3 (10-20); Creatinine Clr Calc Pharmacy 58.1 ml/min; Est GFR (African American) 86.3 ml/min; Est GFR (Non-African American) 74.5 ml/min
--- NOTE | 2023-07-23 11:30 | Discharge Summary ---
Date of Service July 23, 2023 Admission HPI Per Admitting Provider 77-year-old female with past medical history significant for recurrent diverticulitis, GERD, hypertension, asthma presents here with left lower abdominal pain, started Sunday, no fever or chills, no nausea no vomiting, has a loose stool, urinary frequency, outpatient CT abdomen and pelvis is significant for sigmoid colon diverticulitis with possible diverticular abscess, she was sent to the emergency room for evaluation and treatment . She had a colonoscopy last year, showed multiple diverticula, its her third episode of diverticulitis. Denies any weight loss, and overall has a good appetite, denies chest pain shortness of breath or any other symptoms. Patient mentions history of colovesical fistula, apparently she was evaluated by surgeon and was told she has no fistula. Principal Diagnosis Acute sigmoid diverticulitis with microperforation Discharge Exam General-alert and oriented x3, no fever, no chills HEENT-head atraumatic and normocephalic, pupils equal and reactive to light, extraocular muscles intact Neck-no lymphadenopathy or thyromegaly, trachea midline Chest-clear to auscultation. No rales, wheezing or rhonchi Cardiac-regular rate and rhythm, normal S1 and S2 Abdomen-normal bowel sounds, no hepatosplenomegaly Extremities-no cyanosis, clubbing, or edema Neuro-cranial nerves II through XII intact, motor and sensory function within normal limits, strength symmetrical, no focal deficits Psych-normal affect, normal mood Discharge Data Allergies Allergy/AdvReac Type Severity Reaction Status Date / Time adhesive Allergy Mild RASH Verified 07/19/23 11:10 No Known Drug Allergies Allergy Unknown . Verified 07/19/23 11:10 Consultations 07/19/23 16:51 Consult General Surgery Stat 07/19/23 16:52 ED Decision to Admit Stat Hospital Course (1) Diverticulitis: Acute sigmoid diverticulitis with microperforation seen at the time of admission. This has been treated with parenteral Zosyn for the past 5 days. She will continue with oral Augmentin for 1 more week at discharge. Appreciate general surgery consultation and recommendations\\ (2) Hypertension: Stable. Continue current medical management (3) Asthma: Stable. Continue current medical management (4) Hyperlipidemia: Stable. Continue current medical management Plan Home today, July 22, on Augmentin for 1 more week Total Time Total Time Spent Total Time Spent (In Minutes): 45 minutes Discharge Plan Discharge Items Patient Disposition: Home - Self-Care Reason For Visit: DIVERTICULITIS Discharge Diagnosis: Acute sigmoid diverticulitis with microperforation Activity: Resume your previous activity Non-emergency contact: Primary Care Provider Call non-emergency contact if: your symptoms worsen Follow-up/Referrals: Mari Nelson DO [Primary Care Provider] - Diet: Regular and Heart Healthy Addtl Attending Provider Instructions: Take Augmentin (amoxicillin/clavulanate) antibiotic for 1 more week Pending Studies at Discharge: No Stand-Alone Forms: [employer], Smoking Cessation Medications and DC Order Prescriptions: New amoxicillin-pot clavulanate 875-125 mg tablet 1 tab PO BID Qty: 14 0RF Continued losartan 50 mg tablet 75 mg PO QAM Qty: 135 3RF Patient Comments: takes in the am meclizine 12.5 mg tablet 12.5 mg PO BID PRN (Reason: Vertigo) Qty: 20 0RF furosemide 20 mg tablet 20 mg PO DAILY PRN (Reason: leg swelling) Qty: 30 1RF famotidine 20 mg tablet See Rx Instructions .ROUTE .COMPLEX Qty: 90 3RF Dose Instruction: TAKE 1 TABLET DAILY Rx Instructions: TAKE 1 TABLET DAILY albuterol sulfate [Ventolin HFA] 90 mcg/actuation HFA aerosol inhaler 2 puff INH Q6H PRN (Reason: ASTHMA) Qty: 18 3RF fluticasone propionate 50 mcg/actuation spray,suspension 2 spray INTNAS DAILY PRN (Reason: Nasal Congestion) Qty: 16 3RF pantoprazole 40 mg tablet,delayed release (DR/EC) 40 mg PO DAILY Qty: 90 3RF hydroxyzine HCl 25 mg tablet 12.5 mg PO Q OTHER DAY Qty: 45 5RF montelukast 10 mg tablet 10 mg PO HS Qty: 90 1RF Rx Instructions: TAKE 1 TABLET AT BEDTIME flaxseed oil 1,000 mg capsule 1,000 mg PO QPM Rx Instructions: administer with a meal fluticasone propion-salmeterol [Advair Diskus] 250-50 mcg/dose blister with device 1 inh INH BID PRN (Reason: ASTHMA) Qty: 180 3RF simvastatin 40 mg tablet 40 mg PO HS Qty: 90 3RF pregabalin 75 mg capsule 75 mg PO HS Qty: 90 1RF triamcinolone acetonide 0.1 % ointment 1 applic topical BID 14 Days Qty: 30 2RF cyanocobalamin (vitamin B-12) [Vitamin B-12] 1,000 mcg Tablet 1,000 mcg PO QAM multivitamin Capsule 1 cap PO QAM aspirin 81 mg Tablet 81 mg PO QAM fexofenadine [Giovanna Allergy] 180 mg tablet 180 mg PO HS Patient Comments: takes at hs Discharge Orders: Discharge Order (Routine); Ordered 07/23/23 Ordered By: Tony Jerome Admission Data Admit Date/Time: 07/19/23 18:23 Attending Provider: Tony Jerome Admit Provider: Nisha Ovalle Primary Care Provider: Mari Nelson Other Providers: Hever Snyder; Shantanu Chavis Coding Level of Care Code 34429 INP/OBS DISCH >30 MIN Diagnoses Diverticulitis K57.92 Hypertension I10 Asthma J45.909 Hyperlipidemia E78.5
--- NOTE | 2023-07-24 16:39 | Coding Query ---
CODING QUERY To promote full compliance with coding requirements relating to patient care, provider participation is requested in all cases of steam conditioner filling uncertainty. Please assist us with the question(s) below: Coding Question(s): Documentation in the medical record indicates the following: HP- outpatient CT abdomen and pelvis is significant for sigmoid colon diverticulitis with possible diverticular abscess 07/19 GS PN- Diverticular disease of intestine with perforation and abscess: Plan: patient referred to hospital after outpt CT scan noted diverticulitis w/ abscess abscess too small for drainage The CT scan of the patient's abdomen pelvis was performed earlier today and this demonstrated findings consistent with sigmoid diverticulitis. The patient had a 1.8 x 1.4 cm developing diverticular abscess. There is also some adjacent fluid and small amount of extraluminal gas between the sigmoid colon and the bladder suggestive of a contained diverticular perforation. Based on your medical judgment, can you please further clarify the site of the abscess? Intestinal abscess Peritoneal abscess Other ___microperforation with small diverticular abscess Unable to Determine Physician's Response(s): Thank you Emilia Ramos, CDIP, CCS Principal Diagnosis: "that condition established after study, to be chiefly responsible for occasioning the admission of the patient to the hospital for care." Co-Existing Principal Diagnosis: "when two or more diagnoses equally meet the criteria for principal diagnosis as determined by the circumstances of admission, diagnostic work up, and/or therapy provided, and the Alphabetic Index, Tabular List, or another coding guideline does not provide sequencing direction, any one of the diagnoses may be sequenced first." "When the physician has documented what appears to be a current diagnosis in the body of the record, but has not included the diagnosis in the final diagnostic statement, the physician should be asked whether the diagnosis should be added." (Source Coding [facility] 2 QTR90. p3-4) TOSHA
== END 2023-07-23 14:31 | disposition home or self-care (01) | DRG 392 ==
LOC: ED 15:32 → 3W 18:23 → SUATTDRO 18:23 → 3W 21:05